=== PATIENT | male | born 1985 | race Two or more races ===

== ENCOUNTER 2019-02-10 16:43 | Emergency (ER) | payer SELFPAY ==
[~2019-02-10] VITALS: Ht 180.3 cm; Wt 74.8 kg
[2019-02-10] MEDS ORDERED: HYDROcodone-ACET 5/325MG TAB PO ONE (18:30)
[2019-02-10] MEDS ORDERED: ONDANSETRON ODT 4 MG TAB PO ONE (18:30)
[2019-02-10 21:20] VITALS: BP 125/81
== END 2019-02-10 21:28 | disposition short-term general hospital (02) ==
LOC: ER 16:46
DX: S12.600A Unspecified displaced fracture of seventh cervical vertebra, initial encounter for closed fracture (principal); S42.191A Fracture of other part of scapula, right shoulder, initial encounter for closed fracture; R55 Syncope and collapse; V86.56XA Driver of dirt bike or motor/cross bike injured in nontraffic accident, initial encounter; Y93.55 Activity, bike riding; Y92.89 Other specified places as the place of occurrence of the external cause; Y99.8 Other external cause status
CPT/HCPCS: 70450; 72125; 73200; 93005; 96372; Q0162